=== PATIENT | female | born 1950 | race African-American/Black ===

== ENCOUNTER 2021-04-06 17:21 | Inpatient (IN) ==
[2021-04-06] MEDS ORDERED: DOCUSATE SODIUM 100 MG CAPSULE PO PRN (19:39)
[2021-04-06] MEDS ORDERED: ACETAMINOPHEN 325 MG TABLET PO PRN (19:39)
[2021-04-06] MEDS ORDERED: hydrALAZINE 20 MG/1 ML VIAL IV PRN (19:39)
[2021-04-06] MEDS ORDERED: ZALEPLON 5 MG CAPSULE PO PRN (19:39)
[2021-04-06] MEDS ORDERED: GLUCAGON 1 MG VIAL IM PRN (19:39)
[2021-04-06] MEDS ORDERED: DEXTROSE 50% 25 GM/50 ML VIAL IV PRN (19:39)
[2021-04-06] MEDS ORDERED: BISACODYL 5 MG TABLET PO PRN (19:39)
[2021-04-06] MEDS ORDERED: ONDANSETRON 4 MG/2 ML VIAL IV PRN (19:39)
[2021-04-06 20:04] LABS: Basophils % 0.5 % (0.0-0.8); Eosinophils # 0.1 10*3/uL (0.0-0.87); Eosinophils % 1.8 % (0.00-10.9); Hematocrit 41.2 VOL% (35.7-47.0); Hemoglobin 13.3 GM/DL (12.0-16.0); Immature Granulocytes % 0.3 %; Immature Granulocytes Absolute 0.02 #; Lymphocytes # 2.3 10*3/uL (1.4-4.0); Lymphocytes % 34.7 % (21.3-54.2); Mean Corpuscular HGB Conc 32.3 GM/DL (32-36); Mean Corpuscular Volume 84.9 FL (87-102); Mean Platelet Volume 10.3 FL (9.6-12.0); Monocytes % 5.3 % (1.7-12.7); Neutrophils % 57.4 % (38.7-73.9); Platelet Count 215 T/CUMM (130-400); Red Blood Count 4.85 MC/CUMM (3.8-5.5); Red Cell Distribution Width 13.7 % (9.3-17.3); White Blood Count 6.6 T/CUMM (4-12)
[2021-04-06 20:28] LABS: Albumin 3.6 G/DL (3.4-5.0); Bilirubin,Total 0.4 MG/DL (0.20-1.00); Calcium 8.8 MG/DL (8.5-10.1); Osmolality,Calculated 279.1 MOS/KG (273-304); Potassium 3.9 MMOL/L (3.5-5.1); Total Protein 7.7 G/DL (6.4-8.2)
[2021-04-06] MEDS: INSULIN LISPRO 100 UNIT/ML SUBCUT SCH (21:25)
[2021-04-06] MEDS: METOPROLOL SUCCINATE XL 25 MG TABLET PO SCH (21:32)
[2021-04-06] MEDS ORDERED: MORPHINE 2 MG/1 ML SYRINGE IV PRN (21:37)
[2021-04-07] MEDS: ENOXAPARIN 100 MG/ML SYRINGE SUBCUT SCH ×2 (00:14→11:55)
[2021-04-07] MEDS: ASPIRIN 325 MG TABLET PO SCH (09:16)
[2021-04-07] MEDS: FUROSEMIDE 40 MG TABLET PO SCH (09:16)
[2021-04-07] MEDS: METOPROLOL SUCCINATE XL 25 MG TABLET PO SCH (09:17)
[2021-04-07] MEDS: PANTOPRAZOLE 40 MG TABLET PO SCH (09:17)
[2021-04-07] MEDS: INSULIN LISPRO 100 UNIT/ML SUBCUT SCH ×4 (09:18→21:10)
[2021-04-07] MEDS ORDERED: carvediloL 3.125 MG TABLET PO ONE (14:24)
[2021-04-07] MEDS ORDERED: LOSARTAN/HCTZ 50-12.5 MG TABLET PO ONE (14:25)
[2021-04-07] MEDS ORDERED: DEXTROSE 50% 25 GM/50 ML VIAL IV PRN (14:50)
[2021-04-07] MEDS: carvediloL 3.125 MG TABLET PO SCH (21:10)
[2021-04-08] MEDS: ENOXAPARIN 100 MG/ML SYRINGE SUBCUT SCH (00:28)
[2021-04-08 08:31] VITALS: BP 160/81
[2021-04-08] MEDS ORDERED: LOSARTAN/HCTZ 50-12.5 MG TABLET PO SCH (09:00)
[2021-04-08] MEDS: PANTOPRAZOLE 40 MG TABLET PO SCH (09:23)
[2021-04-08] MEDS: FUROSEMIDE 40 MG TABLET PO SCH (09:23)
[2021-04-08] MEDS: ASPIRIN 325 MG TABLET PO SCH (09:25)
[2021-04-08] MEDS: carvediloL 3.125 MG TABLET PO SCH (09:25)
[2021-04-08] MEDS: INSULIN LISPRO 100 UNIT/ML SUBCUT SCH (09:28)
[2021-04-08] MEDS ORDERED: carvediloL 3.125 MG TABLET PO ONE (10:55)
[2021-04-08] MEDS ORDERED: amLODIPine 5 MG TABLET PO ONE (10:55)
[2021-04-08] MEDS ORDERED: carvediloL 6.25 MG TABLET PO SCH (21:00)
[2021-04-09] MEDS ORDERED: amLODIPine 5 MG TABLET PO SCH (09:00)
== END 2021-04-08 11:29 | disposition home or self-care (01) | DRG 305 ==
LOC: N.TELEN
PROVIDERS: ADMIT Internal Medicine; ATTEND Internal Medicine Geriatric Medicine